=== PATIENT | female | born 1995 | race Caucasian/White ===

== ENCOUNTER 2018-04-02 05:00 | Inpatient (IN) ==
[2018-04-02] MEDS ORDERED: *HR* Nalbuphine 10 MG/ML AMPUL IVP PRN (05:33)
[2018-04-02] MEDS ORDERED: Ondansetron 4 MG/2 ML VIAL IVP PRN (05:33)
[2018-04-02] MEDS ORDERED: Naloxone 0.4 MG/ML INJ IVP PRN (05:33)
[2018-04-02] MEDS ORDERED: Metoclopramide 10 MG/2 ML VIAL IVP PRN (05:33)
[2018-04-02] MEDS ORDERED: Famotidine 20 MG/2 ML VIAL IVP PRN (05:33)
[2018-04-02] MEDS ORDERED: Ringers Solution, Lactated 1,000 ML IVC SCH (05:45)
[2018-04-02] MEDS: miSOPROStol 25 MCG TABLET PO PRN ×2 (08:10→12:20)
[2018-04-02 08:11] LABS: Amphetamine Screen,Urine Negative ng/mL (Cutoff=1000); Barbiturate Screen,Urine Negative ng/mL (Cutoff=200); Benzodiazepines Screen,Urine Negative ng/mL (Cutoff=200); Cannabinoid Screen,Urine Negative ng/mL (Cutoff = 50); Cocaine Screen,Urine Negative ng/mL (Cutoff= 300); Opiate Screen,Urine Negative ng/mL (Cutoff=300); Phencyclidine Screen,Urine Negative ng/mL (Cutoff=25)
[2018-04-02 09:02] LABS: Basophils % 0.1 %; Eosinophils # 0.1 K/mcL (0.0-0.6); Hematocrit 38.4 % (35.3-44.9); Hemoglobin 13.1 g/dL (11.5-15.4); Immature Granulocytes % 0.4 % (0-4); Lymphocytes % 26.9 %; Mean Corpuscular HGB Conc 34.1 g/dL (31.6-35.5); Mean Corpuscular Hemoglobin 29.2 pg (28.0-33.3); Mean Corpuscular Volume 85.5 fL (83.0-100.0); Mean Platelet Volume 9.2 fL (9.4-12.4); Monocytes # 0.6 K/mcL (0.0-1.3); Monocytes % 8.2 %; Neutrophils # 4.6 K/mcL (1.6-8.9); Platelet Count 150 K/mcL (140-400); Red Blood Count 4.49 M/mcL (3.82-4.97); Red Cell Distribution Width 13.4 % (11.5-14.5); Segmented Neutrophils % 63.4 %
--- NOTE | 2018-04-02 12:04 | OB/GYN History & Physical ---
Date of Encounter: 04/02/18 Time of Encounter: 12:04 Assessment and Plan (1) Encounter for induction of labor Current visit: Yes Status: Acute Admit to Labor and Delivery Cytotec 50 mcg PO Nubain and epidural as desired Continuous monitoring GBS negative Anticipate (2) 40 weeks gestation of Current visit: Yes Status: Acute History of Present Illness Chief complaint: Labor HPI: Ms. Tucker is a 23 year old female 40 +6 who presents to the L&D floor and for labor induction. States that in her last , she had a vaginal delivery with shoulder dystocia with broken humerus. Patient reports constant movement. Reports contractions that are mild. Denies any vaginal bleeding. Denies any leakage of clear fluid. Has had no complications thus far. 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 LMP was 06/03/2017. Blood Type: A positive GBS negative hep B surface antigen negative, HIV antibody negative GC negative varicella negative rubella IGG Postive Treponema AB negaative negative urine drug screen initial and Past Med Surg Social Fam HX - Past Medical History Medical history: asthma Psychiatric history: anxiety - Past Surgical History Surgical History: appendectomy - Social History Smoking Status: Never smoker Smokeless Tobacco Status: No Alcohol use: none Drug use: none - Family History Mother Adopted: No Family Member Ethnicity: Non- Living Status: Still Living Hx Family Cardiac Disorders: Yes (hypertension) Hx Family Respiratory Disorders: No Hx Family Cancer: No Hx Family GI Disorders: No Hx Family Endocrine Disorder: No Hx Family Neuromuscular Disorders: No Hx Family Neurologic Disorders: No Hx Family HEENT Disorders: No Hx Family Autoimmune Disorders: No Obstetrical History - Pregnancies : 2 Para: 1 Term: 1 : 0 Ab's: 0 Livin Medications and Allergies Albuterol Inhaler 2 puff AER BID PRN 11/07/15 [History] Claritin 1 tab PO DAILY 11/07/15 [History] Ferrous Sulfate 325 mg PO DAILY #30 tablet 11/23/15 [Rx] Vit/FA 1 each PO DAILY tablet 11/23/15 [Rx] Fluticasone/Salmeterol [Advair 100-50 Diskus] 1 each IH BID 04/02/18 [History] Montelukast [Singulair] 10 mg PO DAILY 04/02/18 [History] 3 Allergy/AdvReac Type Severity Reaction Status Date / Time No Known Allergies Allergy Verified 11/07/15 12:42 Review of System OB - Constitutional Constitutional ROS IM: no chills, no fever(s) - Breasts Breasts: no pain - Cardiovascular Cardiovascular: no dyspnea, no leg edema - Respiratory Respiratory: no cough, no dyspnea - Gastrointestinal Gastrointestinal: no abdominal pain - Genitourinary Genitourinary: no urinary frequency, no urinary urgency - Neurological Nerological: no headache(s), no other visual disturbances Exam - Constitutional Constitutional: well nourished, no acute distress - HEENT HEENT: PERRL - Neck Neck exam: normal inspection - Lungs Respiratory exam: CTAB - Cardiovascular Cardiovascular exam: RRR - Abdomen Abdomen: Present: gravid, non tender - Extremities Extremities exam: normal inspection - Cervix Dilation: 4 Effacement: 80 Station: -1 - Uterus Uterus exam: Present: enlarged Results Result Diagrams: 04/02/18 08:00 Abnormal lab results MPV 9.2 fL (9.4-12.4) L 04/02/18 08:00 All other labs normal. - VTE Reasons for not Prescribing Prophylaxis: Treatment not Indicated - Low risk for VTE - Attending Attestation I have seen and examined the patient. I reviewed the resident's note. I agree with its contents. Nathan Salazar MD, FAOG
--- NOTE | 2018-04-02 16:52 | OB Labor Progress Note ---
Date of Encounter: 04/02/18 Time of Encounter: 16:50 Labor Progress Note - Subjective Subjective: Patient having contractions every 3-4 minutes. Patient considering to have membranes ruptured. Patient not in any acute distress at this time. - Cervix Cervix: 6 cm dialated, 80% effacement, -1 - Interventions Interventions: No interventions at this time. Patient wants to wait a little longer before she wants her membranes ruptured. - Plan Plan: Continuous monitoring Rupture membranes at patient request.
--- NOTE | 2018-04-02 19:25 | OB Labor Progress Note ---
Date of Encounter: 04/02/18 Time of Encounter: 19:13 Labor Progress Note - Subjective Subjective: Patient requested to have membranes ruptured. - Cervix Cervix: 7 cm, 90% effacement, -1 - Interventions Interventions: Membranes were ruptured using amnihook. Clear amniotic fluid was expressed. Patient tolerated the procedure well. - Plan Plan: Continueous monitoring as labor progresses. I examined this patient and my medical decision-making was reviewed with the Resident Physician. I agree with the documented findings, disposition and treatment plan as described except to the extent set forth below. Nathan Salazar MD , FACOG
[2018-04-02] MEDS ORDERED: Oxytocin 20 units/ LR 1000 mL 20 UNIT/1,000 ML BAG IVC ONE (21:27)
--- NOTE | 2018-04-02 22:58 | OB/GYN Procedure Note ---
Delivery - Delivery Date: 04/02/18 Provider: Nathan Salazar Intrapartum events: none Delivery induction: AROM, misoprostol Delivery monitor: external FHT, external uterine Anesthesia: local Quantitated Blood Loss: 100 - Infant (s) Infant A Delivery Date: 04/02/18 Infant Delivery Time: 22:22 Presentation: vertex Position: MORALES Route of delivery: Gender: Female Viability: Viable Pounds: 8 Ounces: 6 at 1 minute: 7 at 5 mins: 9 Shoulder Dystocia: encountered Shoulder Dystocia Maneuvers: Meagan maneuver, suprapubic pressure, Katz Screw maneuver Shoulder dystocia time elapsed: 40 Specimens collected: cord blood Placenta: spontaneous Cord: nuchal cord, 3 umbilical vessels, nuchal reduced - Repair Episiotomy: none Laceration Description: Perineal - 1st Degree - Complications Delivery complications: none - Disposition Mom disposition: stable in LDR [place] disposition: stable in LDR - Comments Comments: Nathan Salazar MD FACOG Patient progressed to complete and on the perineum. She delivered a live female weighing 8 lbs. 6 oz. Apgars of 9 over an intact perineum with a first- degree perineal laceration. Position was MORALES. 40 second shoulder dystocia was encountered which responded to Katz, Meagan, and suprapubic measures without difficulty. Placenta delivered spontaneously intact. Estimated blood loss was 100 mL. A first degree perineal laceration was repaired with 3-0 Monocryl.
[2018-04-02] MEDS ORDERED: Ibuprofen 600 MG TABLET PO PRN (23:02)
[2018-04-02] MEDS ORDERED: Lanolin 7 G OINT...G. TP PRN (23:02)
[2018-04-02] MEDS ORDERED: Benzocaine/Menthol 56 GM AEROSOL SPRAY TP PRN (23:02)
[2018-04-02] MEDS ORDERED: Measles/Mumps/Rubella Vacc 0.5 ML VIAL SQ PRN (23:02)
[2018-04-02] MEDS ORDERED: Rho Immune Globulin 1,500 UNIT SYRINGE IM PRN (23:02)
[2018-04-02] MEDS ORDERED: Acetaminophen 325 MG TABLET PO PRN (23:02)
[2018-04-02] MEDS ORDERED: Oxytocin 20 units/ LR 1000 mL 20 UNIT/1,000 ML BAG IVC SCH (23:15)
[2018-04-03 07:19] LABS: Basophils % 0.2 %; Eosinophils % 0.2 %; Hematocrit 35.4 % (35.3-44.9); Hemoglobin 11.9 g/dL (11.5-15.4); Immature Granulocytes % 0.3 % (0-4); Lymphocytes # 2.2 K/mcL (0.6-4.6); Lymphocytes % 16.6 %; Mean Corpuscular HGB Conc 33.6 g/dL (31.6-35.5); Mean Corpuscular Hemoglobin 28.5 pg (28.0-33.3); Mean Corpuscular Volume 84.7 fL (83.0-100.0); Mean Platelet Volume 9.2 fL (9.4-12.4); Monocytes # 1.3 K/mcL (0.0-1.3); Monocytes % 9.6 %; Neutrophils # 9.6 K/mcL (1.6-8.9); Platelet Count 146 K/mcL (140-400); Red Blood Count 4.18 M/mcL (3.82-4.97); Red Cell Distribution Width 13.3 % (11.5-14.5); Segmented Neutrophils % 73.1 %
[2018-04-03] MEDS ORDERED: Prenatal Vit/FA 1 EACH TABLET PO SCH (09:00)
--- NOTE | 2018-04-03 09:05 | Discharge Summary ---
Date of Encounter: 04/03/18 Time of Encounter: 09:02 - Discharge Diagnosis (1) Status post vaginal delivery Priority: Primary Status: Acute Comments: S/P vaginal delivery day 1. VSS Pain is well controlled Lochia is light and without clots Voiding and passing flatus without difficulty Breast feeding well. Discharge home today. - Discharge Medications Prescriptions: Ibuprofen [Motrin] 600 mg PO Q6HR PRN #30 tablet PRN Reason: Cramping Breast Pump [BREAST PUMP] 1 each .ROUTE AD #1 each Docusate [Colace] 100 mg PO BID PRN #30 capsule PRN Reason: Constipation Home Medications: Albuterol Inhaler 2 puff AER BID PRN 11/07/15 [History] Claritin 1 tab PO DAILY 11/07/15 [History] Vit/FA 1 each PO DAILY tablet 11/23/15 [Rx] Fluticasone/Salmeterol [Advair 100-50 Diskus] 1 each IH BID 04/02/18 [History] Montelukast [Singulair] 10 mg PO DAILY 04/02/18 [History] Acetaminophen [Tylenol] 650 mg PO Q6HR PRN tablet 04/03/18 [Rx] Benzocaine/Menthol [place] [Dermoplast [place]] 1 appl TP QID PRN aerosol 04/03/18 [Rx] Breast Pump [BREAST PUMP] 1 each .ROUTE AD #1 each 04/03/18 [Rx] Docusate [Colace] 100 mg PO BID PRN #30 capsule 04/03/18 [Rx] Ibuprofen [Motrin] 600 mg PO Q6HR PRN #30 tablet 04/03/18 [Rx] Lanolin [Lansinoh] 1 appl TP QID PRN oint...g. 04/03/18 [Rx] Allergies/Adverse Reactions: 3 Allergy/AdvReac Type Severity Reaction Status Date / Time No Known Allergies Allergy Verified 11/07/15 12:42 Data Procedures and tests throughout hospitalization: Laboratory Tests 04/02/18 04/02/18 04/03/18 06:08 08:00 07:06 WBC 7.3 13.1 H D RBC 4.49 4.18 Hgb 13.1 11.9 Hct 38.4 35.4 MCV 85.5 84.7 MCH 29.2 28.5 MCHC 34.1 33.6 RDW 13.4 13.3 Plt Count 150 146 MPV 9.2 L 9.2 L Immature Gran % 0.4 0.3 Seg Neutrophils % 63.4 73.1 Lymphocytes % 26.9 16.6 Monocytes % 8.2 9.6 Eosinophils % 1.0 0.2 Basophils % 0.1 0.2 Neutrophils # 4.6 9.6 H Lymphocytes # 2.0 2.2 Monocytes # 0.6 1.3 Eosinophils # 0.1 0.0 Basophils # 0.0 0.0 Urine Opiates Screen Negative Ur Barbiturates Screen Negative Ur Phencyclidine Scrn Negative Ur Amphetamines Screen Negative U Benzodiazepines Scrn Negative Urine Cocaine Screen Negative U Marijuana (THC) Screen Negative Ur Drug Screen Interp See Below Labs on day of discharge: Labs from last 24 hours 04/03/18 04/02/18 07:06 08:00 WBC 13.1 H D 7.3 RBC 4.18 4.49 Hgb 11.9 13.1 Hct 35.4 38.4 MCV 84.7 85.5 MCH 28.5 29.2 MCHC 33.6 34.1 RDW 13.3 13.4 Plt Count 146 150 MPV 9.2 L 9.2 L Immature Gran % 0.3 0.4 Seg Neutrophils % 73.1 63.4 Lymphocytes % 16.6 26.9 Monocytes % 9.6 8.2 Eosinophils % 0.2 1.0 Basophils % 0.2 0.1 Neutrophils # 9.6 H 4.6 Lymphocytes # 2.2 2.0 Monocytes # 1.3 0.6 Eosinophils # 0.0 0.1 Basophils # 0.0 0.0 Date of admission: 04/02/18 05:10 Primary care physician: PCP NONE Consults: 04/02/18 23:02 Consult to Head Waiter/Waitress [CONS] Routine Comment: Vaginal delivery, consult needed Discharging clinician: Michaela Garcia Anticipated date of discharge: 04/03/18 - Patient Status Disposition: Home, Self-Care Condition: Good Functional capacity at discharge: independent ambulation Overall status at discharge: patient is progressing back to baseline - Discharge Instructions Follow Up With: NONE,PCP [Primary Care Provider] - Nathan Salazar MD [Partnered Physician] - - Diet and Activity Activity: increase activity as tolerated Diet: regular diet Hospital Course Reason for admission: IUP at term Delivery: Episiotomy: none Laceration: 1st degree Other procedures: none complications: none Discharge diagnosis: IUP at term delivered [place] baby: female Time Attestation: Total time spent providing and/or coordinating discharge services: Time Spent: Less than 30 minutes Exam - Constitutional Vitals: Temp Pulse Resp BP Pulse Ox 98.6 F 76 16 106/64 98 04/03/18 08:59 04/03/18 08:59 04/03/18 08:59 04/03/18 08:59 04/03/18 02:25 General appearance IM: cooperative, A&O X 3, pleasant - Respiratory Respiratory exam: Present: CTAB - Cardiovascular Cardiovascular exam IM: Present: RRR, +S1, +S2 - GI/Abdominal GI/Abdominal exam IM: normal bowel sounds, soft - Rectal Rectal exam: deferred - Uterine Tone: Firm Uterus Position: 1 Finger Below Umbilicus, Midline - Extremities Exam Extremities exam IM: Present: normal capillary refill, normal inspection, radial pulses palpable and symmetrical - Neurological Exam Neurological exam: alert, oriented X3
[2018-04-03 21:17] VITALS: BP 100/64
== END 2018-04-03 22:55 | disposition home or self-care (01) | DRG 560 ==
LOC: 1NENULAB 05:10 → 1NENUOBS 04-03 01:10
PROVIDERS: ADMIT Obstetrics & Gynecology; ATTEND Obstetrics & Gynecology